=== PATIENT | female | born 1965 | race Caucasian/White ===

== ENCOUNTER 2024-02-25 17:03 | Emergency (ER) | payer OTHER ==
[~2024-02-25] VITALS: Ht 152.4 cm; Wt 45.4 kg
[2024-02-25] MEDS ORDERED: AMOCLA875 PO (17:31)
== END 2024-02-25 17:33 | disposition home or self-care (01) ==
LOC: ER 17:03
DX: S61.250A Open bite of right index finger without damage to nail, initial encounter (principal); W55.01XA Bitten by cat, initial encounter
CPT/HCPCS: 99282